=== PATIENT | female | born 1975 | race Caucasian/White ===

== ENCOUNTER 2018-09-08 11:30 | Emergency (ER) | payer MEDICAID ==
[~2018-09-08] VITALS: Ht 160 cm; Wt 86.2 kg
[2018-09-08 11:40] VITALS: BP_SYST 120
--- NOTE | 2018-09-08 11:49 | NUR ---
Patient to ER bed 8 to gown for evaluation. Side rails up. Report given to Richa TODD.
--- NOTE | 2018-09-08 11:52 | NUR ---
Pt AAOx4 ambulated into ED c/o L sided orbital area swelling and L facial numbness and 2/10 headache since last night. Pt has been taking benadryl with no relief. Reports feeling "weird." No other injuries/complaints per pt/noted. Will continue to monitor.
--- NOTE | 2018-09-08 12:05 | NUR ---
ER Dr. Blanco at bedside examining patient.
[2018-09-08] MEDS ORDERED: DIPHENHYDRAMINE HCL 50 MG CAPSULE PO ONE (12:15)
[2018-09-08] MEDS ORDERED: AMOXICILLIN/CLAVULANATE POTASSIUM 875 MG TABLET PO ONE (12:15)
--- NOTE | 2018-09-08 12:15 | NUR ---
Patient medicated per MD orders. Patient states "I have cramping from my period, can the doctor give me aprescription for 800mg motrin for my cramping. It is thhe only thing that works". Made Dr. Blanco aware
[2018-09-08 12:25] VITALS: BP_SYST 120
--- NOTE | 2018-09-08 12:25 | NUR ---
Patient given written and verbal discharge instructions and verbalizes understanding. ER MD discussed with patient the results and treatment provided. Patient in stable condition. ID arm band removed. IV catheter removed intact and dressing applied, no active bleeding. Rx of Augmentin, benadryl & motrin given. Patient educated on pain management and to follow up with PMD. Pain Scale 2/10 tolerable for pt. Opportunity for questions provided and answered. Medication side effect fact sheet provided.
== END 2018-09-08 12:25 | disposition home or self-care (01) ==
LOC: SED 11:30
DX: H05.89 Other disorders of orbit (principal); W57.XXXA Bitten or stung by nonvenomous insect and other nonvenomous arthropods, initial encounter; Y93.89 Activity, other specified; Y92.89 Other specified places as the place of occurrence of the external cause; Y99.8 Other external cause status
CPT/HCPCS: 99283; Q0163

== ENCOUNTER 2020-12-09 07:50 | Day surgery (SDC) | payer MEDICAID, SELFPAY ==
[~2020-12-09] VITALS: Ht 160 cm; Wt 105.7 kg
[2020-12-09] MEDS ORDERED: SIMETHICONE 40 MG/0.6 ML ML ONE (09:54)
[2020-12-09] MEDS ORDERED: fentaNYL CITRATE/PF 100 MCG/2 ML AMP ONE (09:54)
[2020-12-09] MEDS ORDERED: MIDAZOLAM HCL 5 MG/5 ML VIAL ONE (09:55)
[2020-12-09 18:04] VITALS: BP_SYST 146
== END 2020-12-09 13:03 | disposition home or self-care (01) ==
LOC: SDS 07:50 → SMU 08:20 → SDS 13:03
PROVIDERS: ATTEND Internal Medicine
DX: K29.70 Gastritis, unspecified, without bleeding (principal); E66.01 Morbid (severe) obesity due to excess calories; Z98.84 Bariatric surgery status; E78.5 Hyperlipidemia, unspecified; Z90.49 Acquired absence of other specified parts of digestive tract; Z68.38 Body mass index [BMI] 38.0-38.9, adult; Z20.822 Contact with and (suspected) exposure to COVID-19; Z79.899 Other long term (current) drug therapy
CPT/HCPCS: 36415 ×2; 43239; 87081; 87426; 88305; 88312; 88313; 99152; G0378; J2250; J3010

== ENCOUNTER 2021-01-21 22:37 | Emergency (ER) | payer MEDICAID, SELFPAY ==
[~2021-01-21] VITALS: Ht 162.6 cm; Wt 104.3 kg
--- NOTE | 2021-01-21 22:37 | NUR ---
Patient to ER bed 4 to gown for evaluation. Side rails up.
[2021-01-21 22:40] VITALS: BP_SYST 148
--- NOTE | 2021-01-21 22:51 | NUR ---
Dr. Batista [facility] for pt eval
--- NOTE | 2021-01-21 22:57 | NUR ---
Pt BIB family to ED C/O L Facial / Cheek Numbness started afternoon, radiated to L Neck then translated into a h/a progressively getting worse ( Hx of Migrane ) VSS no s/s of acute distress, Resting on gurney rails up
[2021-01-21] MEDS ORDERED: IOHEXOL 350 mgI/mL, 150 ML INFUS..BTL IV ONE (23:10)
[2021-01-21] MEDS ORDERED: DEXAMETHASONE SOD PHOSPHATE 10 MG/ML VIAL IVP ONE (23:15)
[2021-01-21] MEDS ORDERED: PROCHLORPERAZINE EDISYLATE 10 MG/2 ML VIAL IVP ONE (23:15)
[2021-01-21] MEDS ORDERED: MORPHINE 2 MG/ML INJ. SYRINGE IVP ONE (23:15)
[2021-01-21 23:34] LABS: BASOPHILS # (AUTO) 0.1 K/uL (0.0-0.2); BASOPHILS % (AUTO) 0.9 % (0.0-2.0); EOSINOPHILS # (AUTO) 0.4 K/uL (0.0-0.4); EOSINOPHILS % (AUTO) 4.1 % (0.0-4.0); HEMATOCRIT 41.7 % (36-48); HEMOGLOBIN 14.1 g/dL (12.0-16.0); LYMPHOCYTES # (AUTO) 2.4 K/uL (1.0-5.5); LYMPHOCYTES % (AUTO) 27.4 % (20.5-51.5); MEAN CORPUSCULAR HEMOGLOBIN 29 pg (27-31); MEAN CORPUSCULAR HGB CONC 34 % (32-36); MEAN CORPUSCULAR VOLUME 85 fL (79.0-98.0); MONOCYTES # (AUTO) 0.7 K/uL (0.0-1.0); MONOCYTES % (AUTO) 8.7 % (1.7-9.3); NEUTROPHILS # (AUTO) 5.1 K/uL (1.8-7.7); NEUTROPHILS % (AUTO) 58.9 % (40.0-70.0); PLATELET COUNT (AUTO) 275 K/uL (130-430); RED BLOOD CELL COUNT(AUTO) 4.88 MIL/uL (4.2-6.2); RED CELL DISTRIBUTION WIDTH 13.6 % (9.0-15.0); WHITE BLOOD COUNT (AUTO) 8.6 K/uL (4.8-10.8)
[2021-01-21 23:36] LABS: CALCIUM 8.9 mg/dL (8.4-11.0); CREATININE 0.64 mg/dL (0.55-1.30); POTASSIUM 4.1 mmol/L (3.5-5.1)
[2021-01-21 23:38] LABS: INR 0.9 (0.8-1.2); PROTHROMBIN TIME 9.3 SECS (9.5-12.5)
[2021-01-21 23:41] LABS: ALBUMIN 3.7 g/dL (3.4-4.8); TOTAL BILIRUBIN 0.1 mg/dL (0.0-1.0)
--- NOTE | 2021-01-21 23:58 | NUR ---
Pt back from CT Scan, well tolerated
--- NOTE | 2021-01-22 00:15 | NUR ---
Pt awaiting Tele Neuro to come on line for tele eval
--- NOTE | 2021-01-22 00:29 | NUR ---
Pt done with Tele Doc Neuro
--- NOTE | 2021-01-22 01:28 | NUR ---
VSS no s/s of acute distress Resting on gurney rails up
[2021-01-22] MEDS ORDERED: PRED20TA PO (02:12)
[2021-01-22] MEDS ORDERED: PHE25 PO (02:12)
[2021-01-22] MEDS ORDERED: BUTA1CAP43 PO (02:12)
[2021-01-22 02:25] VITALS: BP_SYST 148
--- NOTE | 2021-01-22 02:25 | NUR ---
Patient given written and verbal discharge instructions and verbalizes understanding. ER MD discussed with patient the results and treatment provided. Patient in stable condition. ID arm band removed. IV catheter removed intact and dressing applied, no active bleeding. Rx of Phenergan, Fioricet and Prednisone given. Patient educated on pain management and to follow up with PMD. Pain Scale 0/10 Opportunity for questions provided and answered. Medication side effect fact sheet provided.
--- NOTE | 2021-01-24 21:51 | NUR ---
PATIENT CALLED IN SAYING SHE HAD A MISSED CALL FROM [facility]. NO ONE FROM THE ER CALLED. TOOK PATIENT PHONE NUMBER TO GIVE INFO TO DR. CORTEZ WHO SEEN PATIENT.
== END 2021-01-22 02:25 | disposition home or self-care (01) ==
LOC: SED 22:37
DX: G43.409 Hemiplegic migraine, not intractable, without status migrainosus (principal); Z91.040 Latex allergy status; Z79.899 Other long term (current) drug therapy
CPT/HCPCS: 36415; 70450; 70496; 70498; 71045; 76376; 80053; 82962; 84484; 85025; 85610; 85730; 86886; 86900; 86901; 93005; 96374; 96375; 99285; J0780; J1100; J2270; Q9967